=== PATIENT | female | born 1970 | race Caucasian/White ===

== ENCOUNTER 2019-01-11 14:48 | Emergency (ER) | payer OTHER ==
[~2019-01-11] VITALS: Ht 170.2 cm; Wt 68.0 kg
[~2019-01-11 14:48] MED LIST: AMOX1TAB5
[2019-01-11] MEDS ORDERED: ZONEGRAN100 MG (14:56)
== END 2019-01-11 20:46 | disposition home or self-care (01) ==
LOC: ER 14:48
DX: R10.32 Left lower quadrant pain (principal); R10.2 Pelvic and perineal pain